=== PATIENT | female | born 1960 | race Caucasian/White ===

== ENCOUNTER 2025-01-23 12:48 | Emergency (ER) | payer OTHER, SELFPAY ==
[2025-01-23 12:56] VITALS: BP 177/129
[2025-01-23 13:03] VITALS: BP 164/74
[2025-01-23 13:33] LABS: % Basophils 0.7 % (0-2); % Eosinophils 1.9 % (0-6); % Immature Granulocytes 0.3 % (0-0.5); % Lymphocytes 23.2 % (20.5-51.1); % Monocytes 6.4 % (1.7-9.3); % Neutrophils 67.5 % (42.2-75.2); Absolute Basophils 0.1 10^3/uL (0-0.2); Absolute Eosinophils 0.1 10^3/uL (0-0.7); Absolute Lymphocytes 1.7 10^3/uL (1.2-3.4); Absolute Monocytes 0.5 10^3/uL (0.1-0.6); Absolute Neutrophils 4.9 10^3/uL (1.4-6.5); Hematocrit 37.2 % (37.0-47.0); Hemoglobin 13.1 g/dL (12.0-16.0); Mean Corp Hgb Conc. 35.2 g/dL (33.0-37.0); Mean Corpuscular Hgb 31.2 pg (27.0-31.0); Mean Corpuscular Volume 88.6 fL (81.0-99.0); Mean Platelet Volume 10.2 fL (7.4-10.4); Nucleated Red Blood Cells % 0 %; Platelet Count 289 10^3/uL (130-400); Red Cell Dist. Width 11.9 % (11.5-14.5); White Blood Cell Count 7.3 10^3/uL (4.8-10.8)
[2025-01-23 14:00] VITALS: BP 131/71
[2025-01-23 14:03] LABS: ALT (SGPT) 25 U/L (0-35); AST (SGOT) 22 U/L (14-36); Albumin 4.7 g/dl (3.5-5.0); Alkaline Phosphatase 81 U/L (38-126); Blood Urea Nitrogen 12 mg/dl (7-17); Calcium 10.1 mg/dl (8.4-10.2); Carbon Dioxide 22 mmol/L (22-30); Chloride 109 mmol/L (98-107); Glucose 120 mg/dl (70-99); Potassium 3.7 mmol/L (3.5-5.1); Sodium 141 mmol/L (135-145); Total Bilirubin 0.6 mg/dl (0.2-1.3); Total Protein 7.7 g/dl (6.3-8.2); eGFR > 60.00
[2025-01-23 15:00] VITALS: BP 134/75
[2025-01-23 16:01] VITALS: BP 133/81
--- NOTE | 2025-01-23 16:13 | ED.GENMED ---
History of Present Illness
<SAV Brothers - Last Filed: 01/23/25 16:57>
General
Chief Complaint: Numbness
Source: patient and spouse
Time Seen by Provider: 01/23/25 15:24
History of Present Illness
History of Present Illness:
This is a 64 y/o F with a PMH of HTN on losartan who presents with numbness x 3 days. She reports multiple sites of intermittent numbness that includes the soles of her feet, her right pinky and scalp. This has been episodic since Monday. She had a
slight headache on Monday. She's had some waves of nausea with no vomiting. She believed this was due to seafood. She reports an 'out of body experience' today while at a graduation. She moved her head to the left and felt as though things were
moving in slow motion. She endorses localized chest 'pressure' in the middle of her chest with a 'weird twinge' in her back. This has never happened before. She denies fevers, painful EOMs, vomiting, diarrhea, hematuria, hematochezia, syncope.
She denies prior IA, autoimmune disorders, MS, diabetes, anemia, CVA, lyme disease. She has not had routine blood work or screening tests. She drinks alcohol socially. She denies current tobacco or drug use. She is postmenopausal. LMP 2009.
Past History
<SAV Brothers - Last Filed: 01/23/25 16:57>
Social History
Tobacco: Former smoker
Alcohol: Occasional
Drug: None
Personal:
Review of Systems
<SAV Brothers - Last Filed: 01/23/25 16:57>
Review of Systems
Constitutional: Reports fatigue; Denies fever
EENT: Reports no symptoms
Respiratory: Reports no symptoms
Cardiac: Reports chest pain; Denies syncope
ABD/GI: Reports no symptoms
: Reports no symptoms
Neurological: Reports numbness
Phy Exam
<SAV Brothers - Last Filed: 01/23/25 16:57>
General Physical Exam
General Presentation: well appearing and no apparent distress
General age: appears stated age
General Skin: warm and dry
General Habitus: normal
General Mental: alert
General Hydration: appears well hydrated
ENT Exam
ENT Exam: EOMI and normocephalic
Eye Exam
Eye Exam: PERRL and EOMI
Cardiovascular Exam
Cardiovascular Exam: regular rate/rhythm
Pulmonary Exam
Pulmonary Exam: lungs clear and no respiratory distress
Gastrointestinal Exam
Gastrointestinal Exam: normal bowel sounds, non tender, soft and non distended
Neurological Exam
Neurological Exam: alert, oriented x3, CN II-XII intact, no motor deficits, no sensory deficits and cerebellum intact
Scores
<Pete Darling DO - Last Filed: 01/23/25 18:22>
Heart Score for Chest Pain Patients
STEMI patient?: No
History: Slightly or Non-Suspicious
ECG: Nonspecific Repolarization
Age: >45 - <65 years
Risk Factors: 1 or 2 Risk Factors
Troponin: </= Normal Limit
Heart Score for Chest Pain Patients: 3
Heart Score Risk: 2.5% MACE over next 6 weeks
Course
<Machelle Lopez GALEN - Last Filed: 01/23/25 16:57>
Orders/Labs/Results
Orders:
Orders
01/23/25 13:21
CMP [Comprehensive Metabolic Panel] Urgent
Complete Blood Count/With Diff Urgent
Lyme Progressive Urgent
Comment: ADD ON
01/23/25 14:46
ECG [Electrocardiogram (*1)] Urgent
Reason for Study: Chest Pain
EKG- Treatment ONCE
01/23/25 16:37
CT Head W/o Iv Contrast Urgent
Comment:
Reason For Exam: headache numbness
01/23/25 16:38
CT Chest PE Study Urgent
Comment:
Reason For Exam: sob back pain
01/23/25 16:45
Troponin I Urgent
01/23/25 17:47
Add On- LAB Urgent
Tests Added?: lyme progressive
Abnormal Lab Results
01/23/25
13:21
MCH 31.2 H pg
(27.0-31.0)
Chloride 109 H mmol/L
(98-107)
Glucose 120 H mg/dl
(70-99)
01/23/25 13:21
01/23/25 13:21
Vital Signs
Initial and Last Documented VS:
Initial Vital Signs
Temp Pulse Resp BP Pulse Ox
98.2 F 68 18 177/129 98
01/23/25 12:56 01/23/25 12:56 01/23/25 12:56 01/23/25 12:56 01/23/25 12:56
Last Documented Vital Signs
Temp Pulse Resp BP Pulse Ox
98.2 F 62 18 133/81 98
01/23/25 12:56 01/23/25 17:51 01/23/25 17:51 01/23/25 16:01 01/23/25 17:51
<Pete Darling, DO - Last Filed: 01/23/25 18:22>
Orders/Labs/Results
Orders:
Orders
01/23/25 13:21
CMP [Comprehensive Metabolic Panel] Urgent
Complete Blood Count/With Diff Urgent
Lyme Progressive Urgent
Comment: ADD ON
01/23/25 14:46
ECG [Electrocardiogram (*1)] Urgent
Reason for Study: Chest Pain
EKG- Treatment ONCE
01/23/25 16:37
CT Head W/o Iv Contrast Urgent
Comment:
Reason For Exam: headache numbness
01/23/25 16:38
CT Chest PE Study Urgent
Comment:
Reason For Exam: sob back pain
01/23/25 16:45
Troponin I Urgent
01/23/25 17:47
Add On- LAB Urgent
Tests Added?: lyme progressive
Abnormal Lab Results
01/23/25
13:21
MCH 31.2 H pg
(27.0-31.0)
Chloride 109 H mmol/L
(98-107)
Glucose 120 H mg/dl
(70-99)
01/23/25 13:21
01/23/25 13:21
Vital Signs
Initial and Last Documented VS:
Initial Vital Signs
Temp Pulse Resp BP Pulse Ox
98.2 F 68 18 177/129 98
01/23/25 12:56 01/23/25 12:56 01/23/25 12:56 01/23/25 12:56 01/23/25 12:56
Last Documented Vital Signs
Temp Pulse Resp BP Pulse Ox
98.2 F 62 18 133/81 98
01/23/25 12:56 01/23/25 17:51 01/23/25 17:51 01/23/25 16:01 01/23/25 17:51
<Pete Darling, DO - Last Filed: 01/23/25 18:22>
*Radiology
Radiology exam reviewed: radiology read reviewed
*Pulse Oximetry
Patient hypoxic: no
Comment: 99
*EKG
Interpreted by ED Provider?: Yes
Interpretation: abnormal
Comparison EKG: no comparison EKG present
Heart Rate: 78
Rate: normal
Rhythm: sinus
Ischemia: T-wave inversion
*[employer] Teacher Interpretation
Interpretation: normal
Heart Rate: 78
Rhythm: sinus
*Critical Care Note
Total Time (30-74mins, 75-104mins- exclusive of procedures): Not Applicable
<Pete Darling DO - Last Filed: 01/23/25 18:22>
Update Note
Update Note:
6:15 PM troponin noted undetectable, CT head CT chest noted reports noted
ED Attending Note
<SAV Brothers - Last Filed: 01/23/25 16:57>
-
Portions of this chart may have been created with voice recognition software.� Occasional wrong word or��sound alike� substitutions may have occurred due to the inherent limitations of voice recognition software.
<Pete Darling DO - Last Filed: 01/23/25 18:22>
ED Attending Note
Patient seen and examined by attending physician: Yes
I performed the substantive portion of visit, reviewed & personally made and approve the management plan that is documented in note by myself or HEMAL.: Yes
ED Attending Note:
Seen with student examined independently 64-year-old female hypertension nondrinker non-smoker multiple complaints she has had some headache, chest pressure, shortness of breath nausea some scalp itching lower extremity numbness numbness of her
hands, on exam she has a nonfocal neurologic exam normal mental status, EKG is abnormal no old in our system, electrolytes essentially normal, will broaden the workup check troponin CT of the head CT of the chest PE protocol, patient believes it
could have started after eating seafood salad although she has had seafood salad previously
Discharge Plan
Departure
Patient Disposition: Home (Routine Discharge)
Date of Disposition: 01/23/25
Time of Disposition: 18:20
Patient with high blood pressure during this ER visit?: No
Condition: Good
Discharge Problem:
Numbness and tingling
Instructions: Paresthesia (DC), High Blood Pressure (DC), Chest Pain CBC Follow Up
Referrals:
Lois Esquivel MD [Family Provider] - Next open appointment
Clayton Gtz MD [Active, Cardiology] - Next open appointment
Activity Restrictions/Additional Instructions:
Rest, drink plenty of fluids, start aspirin 81 mg a day
Follow-up with your family doctor or Dr. Gtz from cardiology or her associates
Return to the ER for worsening symptoms
Interventions
Interventions:
*Risk Screen - Suicide Last Done: 01/23/25 12:56
*General Assessment Last Done: 01/23/25 12:56
*Neglect/Abuse Screening Last Done: 01/23/25 12:56
ED- Cardiac Assessment Last Done: 01/23/25 13:32
ED- Neurological Assessment Last Done: 01/23/25 13:32
ED- Pulmonary Assessment Last Done: 01/23/25 13:32
Discharge Date and Time
Print Language: PORTUGUESE
[2025-01-23 17:25] LABS: Troponin I < 0.012 ng/ml
[2025-01-23 18:00] VITALS: BP 136/78
== END 2025-01-23 19:08 | disposition home or self-care (01) ==
LOC: EMR 12:48
PROVIDERS: Emergency Medicine; EMERGENCY PHYSICIAN Emergency Medicine; FAMILY PHYSICIAN Internal Medicine
DX: R20.2 Paresthesia of skin (principal); R94.31 Abnormal electrocardiogram [ECG] [EKG]; I10 Essential (primary) hypertension; Z79.899 Other long term (current) drug therapy
CPT/HCPCS: 99284; 70450; 71275; 80053; 84484; 85025; 86618; 93005; Q9967

== ENCOUNTER → 2025-02-18 13:33 | Outpatient (REF) | payer OTHER, SELFPAY | LOC: RCS 13:33 | PROVIDERS: ATTENDING PHYSICIAN Internal Medicine; FAMILY PHYSICIAN Internal Medicine | DX: R07.9 Chest pain, unspecified (principal); R94.31 Abnormal electrocardiogram [ECG] [EKG]; I10 Essential (primary) hypertension | CPT/HCPCS: 93306 ==

== ENCOUNTER → 2025-03-11 08:18 | Outpatient (REF) | payer OTHER, SELFPAY | LOC: RCS 08:18 | PROVIDERS: ATTENDING PHYSICIAN Internal Medicine; FAMILY PHYSICIAN Internal Medicine | DX: R07.9 Chest pain, unspecified (principal); R94.31 Abnormal electrocardiogram [ECG] [EKG]; I10 Essential (primary) hypertension | CPT/HCPCS: 78452; 93017; A9500 ==